=== PATIENT | male | born 1970 | race Caucasian/White ===

== ENCOUNTER 2019-01-12 08:33 | Day surgery (SDC) | payer BC ==
[~2019-01-12] VITALS: Ht 190.5 cm; Wt 86.5 kg
[~2019-01-12 08:33] MED LIST: PERCOCET 325 MG1 TA2 PO
[2019-01-12 09:00] VITALS: BP 133/78; PULSE 79; TEMP 99
--- NOTE | 2019-01-12 09:10 | NUR ---
TO RM AT 0810- CALL LIGHT IN REACH
[2019-01-12 11:15] VITALS: BP 115/86; PULSE 69; TEMP 98.4
--- NOTE | 2019-01-12 11:15 | NUR ---
Patient returned to [facility] [address], ambulated to chair without difficulty. Alert and oriented. No complaints of pain or nausea. Vital signs stable. Requesting muffin and juice at this time, tolerating well. Call maldonado within reach, will continue to monitor.
[2019-01-12 11:30] VITALS: BP 112/86; PULSE 77
[2019-01-12 11:45] VITALS: BP 109/83; PULSE 69
--- NOTE | 2019-01-12 11:45 | NUR ---
Patient states he is feeling well and is ready to go home. Discharge instructions reviewed. IV removed.
--- NOTE | 2019-01-12 11:54 | NUR ---
Patient wheeled down to lobby. Friend Clau to drive patient home.
== END 2019-01-12 11:54 | disposition home or self-care (01) ==
LOC: SDCO 08:33
DX: Z12.11 Encounter for screening for malignant neoplasm of colon (principal); K64.0 First degree hemorrhoids
CPT/HCPCS: OP; J2250; J3010; J7030